=== PATIENT | male | born 1990 | race Caucasian/White ===

== ENCOUNTER 2020-02-28 11:39 | Emergency (ER) | payer SELFPAY ==
--- NOTE | ~2020-02-28 | XR_ITS ---
EXAMINATION: XR foot RT min 3V DATE: 02/28/2020 12:02 INDICATION: Right foot pain. Injury. TECHNIQUE: 4 views of right foot were obtained. COMPARISON: None. FINDINGS: Bone alignment is normal. There are nondisplaced oblique fractures of the necks of third an d fourth metatarsals. Joint spaces are normal. IMPRESSION: 1. Nondisplaced oblique fractures of the necks of the third and fourth metatarsals. Reviewed, dictated and finalized at location A. IMPRESSION: 1. Nondisplaced oblique fractures of the necks of the third and fourth metatars als.
[2020-02-28 11:53] VITALS: BP 134/80; PULSE 100; RESP 16; TEMP 36.9; O2SAT 98
--- NOTE | 2020-02-28 12:17 | ED.LOWEXIN ---
HPI - Extremity Injury (Lower) General Chief Complaint: Extremity Injury, Lower Stated Complaint: Right foot Source: patient Mode of arrival: ambulatory Limitations: no limitations History of Present Illness HPI Narrative: patient presents with some right anterior foot pain after he inadvertently kicked some his dresser at home because he got frustrated that his finger got caught in the dresser drawer causing pain and swelling in the anterior right foot pain about an 8/10, has good range of motion although it is an tender and painful in his toes and his ankle. complaint: foot injury Onset (ago): hour(s) Injury: Right: foot ( Pain and swelling) Type of Injury: blunt Place: home Severity: moderate Severity scale (1-10): 8 Relieving factors: immobilization Exacerbating factors: weight bearing Context: direct blow Other symptoms: none Related Data Allergies Allergy/AdvReac Type Severity Reaction Status Date / Time No Known Allergies Allergy Verified 02/28/20 11:51 Review of Systems Review of Systems: All systems reviewed & are unremarkable except as noted in HPI and below PMFSH Past Medical History Medical History Patient denies medical problems Exam Const: General: no acute distress Orientation/consciousness: patient oriented x3 HENMT: Head: normal to inspection Eyes: Conjunctivae: conjunctivae normal Pupils: Equal, round and reactive pupils present EOM: EOMs intact bilaterally Neck: Neck: normal visual inspection and no lymphadenopathy Chest: Chest palpation & inspection: normal inspection of the chest Resp: Effort & Inspection: normal respiratory effort Auscultation: clear to auscultation bilaterally Cardio: Rate: regular rate Rhythm: regular rhythm GI: GI Palp: Yes Soft to palpation Skin: General skin exam: normal color Rashes: no rashes Extrem: Other: tender right foot to palpation Psych: Appearance: grossly normal Mental Status: mental status grossly normal Course Course Emergency Course: ask patient if he would like an injection of pain medicine he declined at this time and but will send pain medication to his local pharmacy, advised patient to follow-up with his primary care physician for possible orthopedic referral for evaluation and treatment. Vital Signs Vital signs: Vital Signs Temperature 36.9 C 02/28/20 11:53 Pulse Rate 100 02/28/20 11:53 Respiratory Rate 16 02/28/20 11:53 Blood Pressure 134/80 02/28/20 11:53 Pulse Oximetry 98 02/28/20 11:53 Temperature 36.9 C 02/28/20 11:53 Pulse Rate 100 02/28/20 11:53 Respiratory Rate 16 02/28/20 11:53 Blood Pressure 134/80 02/28/20 11:53 Pulse Oximetry 98 02/28/20 11:53 Critical Care Time Critical Care Time Critical Care Time: No Discharge Plan Discharge Clinical Impression: Foot fracture, right Qualifiers: Encounter type: initial encounter Fracture type: closed Qualified Code(s): S92.901A - Unspecified fracture of right foot, initial encounter for closed fracture Patient Disposition: Home, Self-Care Condition: Stable Instructions: Antibiotic Form, Foot Fracture in Adults (ED) Additional Instructions: follow-up with primary care physician for possible orthopedic referral, take medicine as prescribed. Prescriptions: New oxycodone-acetaminophen [Percocet] 5-325 mg tablet 1 tablet PO Q6H PRN (Reason: pain) Qty: 20 RF: 0 Follow-up/Referrals: PHYSICIAN NOT ON STAFF,NONSTAFF [Primary Care Provider] - Time of Disposition: 12:22
[2020-02-28 12:31] VITALS: RESP 16
== END 2020-02-28 12:40 | disposition home or self-care (01) ==
PROVIDERS: Emergency Provider Emergency Medicine
DX: S92.901A Unspecified fracture of right foot, initial encounter for closed fracture (principal); W22.03XA Walked into furniture, initial encounter
CPT/HCPCS: 73630; 99283; 99284; L2112

== ENCOUNTER 2025-03-02 18:12 | Emergency (ER) | payer SELFPAY ==
[2025-03-02 18:17] VITALS: BP 123/92; PULSE 90; RESP 16; TEMP 36.6; O2SAT 100
--- NOTE | 2025-03-02 18:20 | ED.SKABFB ---
HPI - Skin/Abscess/Foreign Bdy General Chief complaint: Skin/Abscess/Foreign Body Stated complaint: right hand pain Time Seen by Provider: 03/02/25 18:17 Source: patient Mode of arrival: ambulatory Limitations: no limitations History of Present Illness HPI narrative: 35 YEARS OLD WHITE MALE CAME TO THE ED BY PRIVATE CAR COMPLAINING OF SPIDER BITE TO RIGHT HAND YESTERDAY. PATIENT DID NOT SEE SPIDER. HE DENIES ANY FEVER, CHILLS, NAUSEA, VOMITING, DIAPHORESIS, ABDOMINAL PAIN OR WEAKNESS. PATIENT ALSO DENIES ANY ITCHING, REPORTS BLISTERS AT THE SITE OF THE BITE WHICH IS RESOLVED TODAY. Related Data Allergies Allergy/AdvReac Type Severity Reaction Status Date / Time No Known Allergies Allergy Verified 03/02/25 18:20 Review of Systems Review of Systems: All systems reviewed & are unremarkable except as noted in HPI and below PMFSH Past Medical History Medical History Patient denies medical problems Exam Narrative: GENERAL APPEARANCE: WELL-DEVELOPED, WELL-NOURISHED SKIN: NORMAL COLOR HEAD: NORMOCEPHALIC, NONTRAUMATIC EYES: CLEAR CONJUNCTIVA CHEST AND RESPIRATORY: AIRWAY PATENT, NO RESPIRATORY DISTRESS, NO ACCESSORY MUSCLE USE HEART: REGULAR RATE/RHYTHM VASCULAR: NORMAL PERIPHERAL PULSES, NORMAL CAPILLARY REFILL. 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 TESTED, NO GROSS MOTOR DEFICIT Course Vital Signs Vital signs: Vital Signs Temperature 36.6 C 03/02/25 18:17 Pulse Rate 90 03/02/25 18:17 Respiratory Rate 16 03/02/25 18:17 Blood Pressure 123/92 H 03/02/25 18:17 Pulse Oximetry 100 03/02/25 18:17 Oxygen Delivery Room Air 03/02/25 18:17 Temperature 36.6 C 03/02/25 18:17 Pulse Rate 90 03/02/25 18:17 Respiratory Rate 16 03/02/25 18:17 Blood Pressure 123/92 H 03/02/25 18:17 Pulse Oximetry 100 03/02/25 18:17 Oxygen Delivery Room Air 03/02/25 18:17 MDM - Skin/Abscess/Foreign Bdy MDM Narrative Medical decision making narrative: DIFFERENTIAL DIAGNOSIS INSECT BITE VERSUS SKIN INFECTION Critical Care Time Critical Care Time Critical Care Time: No Discharge Plan Discharge Clinical Impression: Insect bite Patient Disposition: Home Condition: Stable Instructions: Antibiotic Form, Insect Bite or Sting (ED) Additional Instructions: RETURN IF SYMPTOMS ARE WORSENING , CALL YOUR FAMILY PHYSICIAN FOR APPOINTMENT, TAKE TYLENOL NEEDED FOR ACHES AND PAIN, CONTINUE HOME MEDICATIONS. Patient Language: Citizen Of [place] Prescriptions: New cephalexin 500 mg capsule 500 mg PO Q6H Qty: 28 0RF Follow-up/Referrals: Stephanie Reyes MD [Primary Care Provider] -
--- OUTSIDE RECORDS SUMMARY | 2025-03-02 18:33 | XMS_ITS | Clinical Summary ---
Author Organization [facility] Address [facility] [place] [address] Care Team Providers Care Painter Foreman Name Role Phone Georgia Tidwell MD Primary Care Provider [phone] Allergies No known active allergies Medications aspirin-acetamin ophen-caffeine (EXCEDRIN MIGRAINE) 250-250-65 MG tablet Take 1 tablet by mouth every 6 (six) hours as needed for Pain. Active HYDROcodone-acet aminophen (NORCO) 5-325 MG tabletIndication s:Acute Pain < 3 Day Supply Take 1 tablet by mouth every 8 (eight) hours as needed for Pain. Indications : Acute Pain < 3 Day Supply 9 tablet 06/29/2024 Active Active Problems No known active problems Family History Medical History Relation Comments No Known Problems Brother Cancer Mother No Known Problems Sister Relation Status Comments Brother Father Mother Sister Social History Tobacco Use Types Packs/Day Years Used Date Smoking Tobacco: Every Day Cigarettes Smokeless Tobacco: Never Alcohol Use Standard Drinks/Week Comments Not Currently 0 (1 standard drink = 0.6 oz pur e alcohol) Sex and Gender Information Value Date Recorded Sex Assigned at Not on file Legal Sex Male 10:18 PM CDT Gender Identity Not on file Sexual Orientation Not on file Last Filed Vital Signs Vital Sign Reading Time Taken Comments Blood Pressure 111/71 06/29/2024 10:39 AM TOY 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 Pulse 84 06/29/2024 10:39 AM TOY 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 REPAIRER Temperature 36.8 C (98.3 F) 06/29/2024 8:29 AM TOY 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 REPAIRER Respiratory Rate 20 06/29/2024 10:3 9 AM TOY 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 REPAIRER Oxygen Saturation 99% 06/29/2024 10: 39 AM TOY 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 REPAIRER Inhaled Oxygen Concentration - - Weight 86.1 kg (189 lb 12.8 oz) 06/29/2024 8:29 AM TOY 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 REPAIRER Height 188 cm (6' 2) 06/29/2024 8:29 AM TOY 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 REPAIRER Body Mass Index 24.37 06/29/2024 8:29 AM TOY 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 REPAIRER Plan of Treatment Health Maintenance Due Date Last Done Comments Annual Physical 1994 Hepatitis C 2009 DTaP, Tdap and Td Vaccines ( 1 - Tdap) 2010 Hepatitis B Vaccines (1 of 3 - 19+ 3-dose series) 2010 Pneumococcal Vaccine: Pediat rics (0 to 5 Years) and At-Risk Patients (6 to 49 Years) (1 of 2 - PCV) 2010 COVID-19 Vaccine (2023-2 5 season) 2024 HPV Vaccines Aged Out No longer eligi ble based on patient's age to complete this topic Meningococcal B Vaccine Aged Out No l onger eligible based on patient's age to complete this topic Meningococcal Vaccine Aged Out No luz elena aubrey eligible based on patient's age to complete this topic RSV Immunizations Under 20 Months Aged Out No longer eligible based on patient's age to complete this topic Care Teams Painter Foreman Relationship Specialty Start Date End Date Georgia Tidwell MD [facility] [place] [id number] PCP - General FAMILY PRACTICE 12/28/20
== END 2025-03-02 18:35 | disposition home or self-care (01) ==
LOC: CHSED 18:30
PROVIDERS: Emergency Provider Emergency Medicine; PCP Internal Medicine
DX: S60.561A Insect bite (nonvenomous) of right hand, initial encounter (principal); W57.XXXA Bitten or stung by nonvenomous insect and other nonvenomous arthropods, initial encounter
CPT/HCPCS: 99283